=== PATIENT | female | born 2000 | race Caucasian/White ===

== ENCOUNTER 2022-04-06 09:21 | Outpatient (CLI) | payer OTHER, SELFPAY ==
[2022-04-06 15:18] LABS: Chlamydia DNA Amplified* NOT DETECTED (No Detected); GC DNA Amplified* NOT DETECTED (No Detected)
== END 2022-04-06 09:22 | disposition home or self-care (01) ==
LOC: LKVREF 09:21
PROVIDERS: PCP Emergency Medicine; Visit Provider Emergency Medicine
DX: Z01.419 Encounter for gynecological examination (general) (routine) without abnormal findings (principal); Z11.3 Encounter for screening for infections with a predominantly sexual mode of transmission
CPT/HCPCS: 87491; 87591

== ENCOUNTER 2023-05-15 11:21 | Outpatient (CLI) | payer OTHER, SELFPAY | END 2023-05-15 11:22 | disposition home or self-care (01) | PROVIDERS: PCP Emergency Medicine; Visit Provider Physician Assistant | DX: Z01.419 Encounter for gynecological examination (general) (routine) without abnormal findings (principal); Z13.29 Encounter for screening for other suspected endocrine disorder; Z13.6 Encounter for screening for cardiovascular disorders; Z13.9 Encounter for screening, unspecified | CPT/HCPCS: 80061; 84439; 84443 ==

== ENCOUNTER 2023-06-26 10:08 | Outpatient (CLI) | payer OTHER, SELFPAY | END 2023-06-26 10:09 | disposition home or self-care (01) | LOC: NFLDREF 07-09 10:33 | PROVIDERS: PCP Emergency Medicine; Referring Provider Emergency Medicine; Visit Provider Emergency Medicine | DX: Z13.29 Encounter for screening for other suspected endocrine disorder (principal) | CPT/HCPCS: 84439; 84443 ==

== ENCOUNTER 2023-09-11 10:36 | Outpatient (CLI) | payer OTHER, SELFPAY | END 2023-09-11 10:37 | disposition home or self-care (01) | LOC: NFLDREF 09-29 10:06 | PROVIDERS: PCP Emergency Medicine; Visit Provider Physician Assistant | DX: E03.8 Other specified hypothyroidism (principal) | CPT/HCPCS: 84439; 84443 ==

== ENCOUNTER 2024-05-27 10:46 | Outpatient (CLI) | payer OTHER, SELFPAY ==
[2024-05-27 16:27] LABS: Chlamydia DNA Amplified* NOT DETECTED (No Detected); GC DNA Amplified* NOT DETECTED (No Detected)
== END 2024-05-27 10:47 | disposition home or self-care (01) ==
PROVIDERS: PCP Family Medicine; Visit Provider Family Medicine
DX: R79.89 Other specified abnormal findings of blood chemistry (principal); Z12.4 Encounter for screening for malignant neoplasm of cervix; Z11.3 Encounter for screening for infections with a predominantly sexual mode of transmission
CPT/HCPCS: 83520; 84439; 84443; 84480; 86376; 86592; 86703; 87491; 87591; 87624; 87625; 88141; 88142